=== PATIENT | male | born 1975 | race Two or more races ===

== ENCOUNTER 2019-05-11 09:04 | Emergency (ER) | payer MEDICAID, OTHER | END 2019-05-11 10:03 | disposition left against medical advice (07) | LOC: ER 09:04 | DX: R50.9 Fever, unspecified (principal); Z53.21 Procedure and treatment not carried out due to patient leaving prior to being seen by health care provider ==

== ENCOUNTER 2020-06-21 07:30 | Day surgery (SDC) | payer MEDICAID ==
[~2020-06-21] VITALS: Ht 165.1 cm; Wt 75.3 kg
[~2020-06-21 07:30] MED LIST: GABA300C10 PO; OMEP20TA PO; SUCR1TAB22 PO
[2020-06-21] MEDS ORDERED: ceFAZolin 1GM/50ML 50 ML IV ONE (08:28)
[2020-06-21] MEDS ORDERED: LIDOCAINE W/ EPINEPHRINE 1% 20ML VIAL ONE (09:43)
[2020-06-21] MEDS ORDERED: fentaNYL CITRATE 100 MCG/2 ML VL ONE (09:53)
[2020-06-21] MEDS ORDERED: MIDAZOLAM HCL 2MG/2ML 2ml VIAL (1mg/ml) ONE (09:53)
[2020-06-21] MEDS ORDERED: MEPERIDINE HCL (50 MG/ML) 1 ML VIAL ONE (09:53)
[2020-06-21] MEDS ORDERED: LABETALOL HCL 5 MG/ML 4ML SYRINGE IV PRN (10:00)
[2020-06-21] MEDS ORDERED: ePHEDrine SULFATE 50 MG/ML AMP IV PRN (10:00)
[2020-06-21] MEDS ORDERED: MORPHINE SULFATE 4 MG/ML SYR/VIAL IV PRN (10:00)
[2020-06-21] MEDS ORDERED: HYDROmorphone HCL 2 MG/ML VL IV PRN (10:00)
[2020-06-21] MEDS ORDERED: MIDAZOLAM HCL 2MG/2ML 2ml VIAL (1mg/ml) IV PRN (10:00)
[2020-06-21] MEDS ORDERED: ONDANSETRON HCL 4 MG/2 ML VIAL IV PRN (10:00)
[2020-06-21] MEDS ORDERED: DexAMETHasone SOD PHOS 10MG/1ML VIAL INJ ONE (10:14)
[2020-06-21] MEDS ORDERED: PROPOFOL 10 MG/ML 20 ML IV ONE (10:14)
[2020-06-21] MEDS ORDERED: ePHEDrine SULFATE 50 MG/ML AMP ONE (10:24)
[2020-06-21] MEDS ORDERED: ONDANSETRON HCL 4 MG/2 ML VIAL ONE (10:45)
[2020-06-21 12:10] VITALS: BP 113/58
== END 2020-06-21 12:20 | disposition home or self-care (01) ==
LOC: SUR 07:30
PROVIDERS: ATTEND Urology
DX: Z98.890 Other specified postprocedural states (principal); C62.92 Malignant neoplasm of left testis, unspecified whether descended or undescended; N50.89 Other specified disorders of the male genital organs; G89.29 Other chronic pain; Z79.899 Other long term (current) drug therapy; Z87.891 Personal history of nicotine dependence; Z20.822 Contact with and (suspected) exposure to COVID-19; Z90.49 Acquired absence of other specified parts of digestive tract
CPT/HCPCS: 36415; 54530; 82105; 83615; 84702; J0690; J1100; J2175; J2250; J2405; J2704; J3010; U0003

== ENCOUNTER 2021-09-12 03:50 | Emergency (ER) | payer MEDICAID ==
[~2021-09-12] VITALS: Ht 165.1 cm; Wt 81.6 kg
[2021-09-12] MEDS ORDERED: fentaNYL CITRATE 100 MCG/2 ML VL IV ONE (06:15)
[2021-09-12] MEDS ORDERED: MORPHINE SULFATE 4 MG/ML SYR/VIAL IV ONE ×2 (06:15→11:00)
[2021-09-12] MEDS ORDERED: ONDANSETRON HCL 4 MG/2 ML VIAL IV ONE ×2 (06:15→11:00)
[2021-09-12] MEDS ORDERED: TETANUS-DIPTH-ACEL PERTUSSIS 0.5ML SYR Tdap IM ONE (07:00)
[2021-09-12] MEDS ORDERED: LIDOCAINE 1% (LOCAL ANESTH.) PF 5ml SDV ID ONE (07:15)
[2021-09-12] MEDS ORDERED: SODIUM CHLORIDE 0.9% 1,000 ML IV ONE (07:15)
[2021-09-12 07:20] LABS: Basophils # (auto) 0 10 ^3/uL (0-0.2); Basophils % (auto) 0.1 % (0.0-2.0); Eosinophils # (auto) 0 10 ^3/uL (0-0.8); Hemoglobin 14.3 g/dL (13.5-17.5); Lymphocytes # (auto) 1.3 10 ^3/uL (0.4-5.4); Lymphocytes % (auto) 7.3 % (10.0-50.0); Mean Corpuscular Hemoglobin 31.2 pg (28.0-32.0); Mean Corpuscular Volume 91.9 fL (80.0-100.0); Monocytes # (auto) 1.9 10 ^3/uL (0-1.3); Monocytes % (auto) 10.1 % (0.0-12.0); Neutrophils # (auto) 15.1 10 ^3/uL (1.6-8.6); Neutrophils % (auto) 82.5 % (37.0-80.0); Nucleated Red Blood Cells % 0.1 %; Red Blood Cells 4.57 10^6/uL (4.5-5.90); Red Cell Distribution Width 13.1 % (11.8-14.3); White Blood Cell 18.4 10^3/uL (4.4-10.8)
[2021-09-12 07:33] LABS: BUN/Creatinine Ratio 15.2; Calcium 8.6 mg/dL (8.5-10.1); Potassium 4.2 mmol/L (3.5-5.1)
[2021-09-12 07:41] LABS: Bilirubin, Total 0.3 mg/dL (0.2-1.0); Total Protein 7.4 g/dL (6.4-8.2)
[2021-09-12 11:11] VITALS: BP 138/76
== END 2021-09-12 11:25 | disposition short-term general hospital (02) ==
LOC: ER 03:50 → EDBD 03:50 → ER 11:25
DX: S01.01XA Laceration without foreign body of scalp, initial encounter (principal); M25.571 Pain in right ankle and joints of right foot; R53.1 Weakness; Z79.899 Other long term (current) drug therapy; Y04.2XXA Assault by strike against or bumped into by another person, initial encounter; Y93.89 Activity, other specified; Y92.89 Other specified places as the place of occurrence of the external cause; Y99.8 Other external cause status
CPT/HCPCS: 12002; 29515; 36415; 70450; 70486; 71045; 71250; 72125; 73620; 74176; 80053; 85025; 90471; 90715; 96361; 96374; 96375; 96376; 99285; J2270; J2405; J3010; J7030